=== PATIENT | male | born 1970 | race Caucasian/White ===

== ENCOUNTER 2019-01-05 17:09 | Emergency (ER) | payer BC, SELFPAY ==
[2019-01-05 17:11] VITALS: BP 116/73; PULSE 97; RESP 17; TEMP 36.8; O2SAT 97; BMI 20.2
--- NOTE | 2019-01-05 17:21 | US_ITS ---
STUDY: VENOUS DOPPLER ULTRASOUND - RIGHT LOWER EXTREMITY REASON FOR EXAM: Male, 48 years old. RT POSTERIOR KNEE PAIN-X 1 DAY TECHNIQUE: Ultrasound evaluation of the deep vein system to include arteaga-scale imaging and compression was performed. Arteaga-scale imaging and Doppler sonographic evaluation, including duplex spectral analysis and qualitative color flow sonography, was performed. COMPARISON: None. FINDINGS: Common Femoral Vein: Normal compression, spontaneity and augmentation. Normal color Doppler. Common Femoral Vein/Greater Saphenous Junction: Normal compression, spontaneity and augmentation. Normal color Doppler. Deep Femoral Vein: Normal compression, spontaneity and augmentation. Normal color Doppler. Femoral Proximal: Normal compression, spontaneity and augmentation. Normal color Doppler. Femoral Middle: Normal compression, spontaneity and augmentation. Normal color Doppler. Femoral Distal: Normal compression, spontaneity and augmentation. Normal color Doppler. Popliteal Vein: Normal compression, spontaneity and augmentation. Normal color Doppler. Posterior Tibial Vein: Normal compression, spontaneity and augmentation. Normal color Doppler. Peroneal Vein: Normal compression, spontaneity and augmentation. Normal color Doppler. A 1.33 cm Scott's cyst is present in the posterior aspect and the joint. US/Venous Duplex Imag/Limited/Uni IMPRESSION: 1. No demonstrated deep venous thrombosis of the right lower extremity 2. Small Scott's cyst. Electronically Signed: You Sanchez MD at 18:33 EST , Service support ,
[2019-01-05 19:28] VITALS: BP 108/72; PULSE 60; RESP 16; O2SAT 98
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
--- NOTE | 2019-01-05 19:42 | ED.DEP ---
ED Disposition - Plan for ED Patient: Instructions: Preventing Deep Vein Thrombosis Referrals: JOSE JOE [Other]
[2019-01-05 19:48] VITALS: BP 102/75; PULSE 68; RESP 15; O2SAT 95
== END 2019-01-05 19:48 | disposition home or self-care (01) ==
LOC: ED 18:36
PROVIDERS: Emergency Provider Emergency Medicine
DX: M79.604 Pain in right leg (principal); Z86.718 Personal history of other venous thrombosis and embolism
CPT/HCPCS: 93971; 99282

== ENCOUNTER 2020-06-24 15:03 | Emergency (ER) | payer BC, SELFPAY ==
[2020-06-24 15:04] VITALS: BP 112/73; PULSE 95; RESP 14; TEMP 36.4; O2SAT 98; BMI 20.7
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
== END 2020-06-24 15:39 | disposition home or self-care (01) ==
PROVIDERS: Emergency Provider Emergency Medicine; PCP Family Medicine
DX: S16.1XXA Strain of muscle, fascia and tendon at neck level, initial encounter (principal); V89.2XXA Person injured in unspecified motor-vehicle accident, traffic, initial encounter; Y93.89 Activity, other specified; Y92.9 Unspecified place or not applicable; Y99.9 Unspecified external cause status; F17.200 Nicotine dependence, unspecified, uncomplicated
CPT/HCPCS: 99282

== ENCOUNTER 2022-01-10 16:54 | Emergency (ER) | payer BC, SELFPAY ==
[2022-01-10 16:56] VITALS: BP 122/90; PULSE 116; RESP 18; TEMP 36.1; O2SAT 98; BMI 20.9
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
--- NOTE | 2022-01-10 17:23 | RAD_ITS ---
EXAM: XR LEFT HAND COMPLETE, 3 OR MORE VIEWS CLINICAL INDICATION: Injury/Pain TECHNIQUE: Frontal, lateral and oblique views of the left hand. This report was created using [employer] report generation technology. COMPARISON: None. FINDINGS: BONES/JOINTS: There is a metallic nail seen along the volar aspect of the hand at the level of the metacarpophalangeal joints. This extends from the second through the fourth phalanx. There is no osseous abnormality. No acute fracture. No subluxation. Normal alignment. No sclerotic or destructive changes observed. SOFT TISSUES: Unremarkable. No soft tissue swelling or gas. No radiopaque foreign body. RAD/Hand Min 3 Views IMPRESSION: Nail in the soft tissues of the volar aspect of the hand at the metacarpophalangeal joints. There is no osseous abnormality. Electronically Signed: Cornell Cantor MD at 17:42 EST ,
[2022-01-10] MEDS: Lidocaine 1% (20 ml mdv) 20 ML Vial 5 ML INFILT (17:42)
[2022-01-10] MEDS: Diphth,Pertuss(Acell),Tet Vac 0.5 ML Vial IM (17:42)
[2022-01-10] MEDS: Cephalexin 250 MG Capsule 500 MG PO (18:07)
== END 2022-01-10 18:12 | disposition home or self-care (01) ==
PROVIDERS: Emergency Provider Emergency Medicine; PCP Family Medicine; Visit Provider Emergency Medicine
DX: S61.442A Puncture wound with foreign body of left hand, initial encounter (principal); W29.4XXA Contact with nail gun, initial encounter; F17.210 Nicotine dependence, cigarettes, uncomplicated; Z23 Encounter for immunization
CPT/HCPCS: 73130; 90471; 90715; 99283

== ENCOUNTER 2023-12-26 14:08 | Emergency (ER) | payer BC, SELFPAY ==
[2023-12-26 14:09] VITALS: BP 111/84; PULSE 74; RESP 18; TEMP 36.4; O2SAT 97; BMI 22.1
[2023-12-26 14:57] LABS: Absolute Lymphocyte Count 2.29 X10^3/uL (0.83-4.51); Absolute Neutrophil Count 5.9 X10^3/uL (2.0-7.7); Basophil# 0.08 X10^3/uL; Basophil% 0.9 % (0-1); Eosinophil# 0.25 X10^3/uL; Eosinophils% 2.7 % (0-5); Hematocrit 53.6 % (40-54); Lymphocyte # 2.29 X10^3/ul (0.83-4.51); Lymphocyte % 24.4 % (19-41); Mean Corp Hgb Conc 34.3 g/dL (32-36); Mean Corpuscular Volume 84.5 fL (80-94); Mean Platelet Vol. 8.2 fl (6.2-12.0); Monocyte# 0.86 X10^3/uL; Monocyte% 9.2 % (0-10); NRBC Flagged by Analyzer 0 % (0-5); Neutrophil # 5.87 X10^3/uL (2.7-7.7); Neutrophil % 62.4 % (47-70); Platelet Count 353 K/mm3 (150-450); RBC Distribution Width CV 12.8 % (11.6-14.6); RBC Distribution Width SD 39.6 fl (35.1-43.9); Red Blood Count 6.34 M/mm3 (4.6-6.2); White Blood Count 9.4 K/mm3 (4.4-11.0)
[2023-12-26 15:03] LABS: Hemoglobin 18.4 g/dL (13.0-16.5)
[2023-12-26 15:04] LABS: Bacteria 0 SEEN /hpf (None Seen); Mucous, Urine 0 SEEN /hpf (<or=2+); Red Blood Cells-Urine 0 SEEN /hpf (0-5); Squamous Epithelial Cells - UA 0 SEEN /hpf (0-5)
[2023-12-26 15:07] LABS: Color, Urine Yellow (Yellow); Glucose, Dipstick Normal (Normal); Ketone-Dipstick Negative (Negative); Leukocyte Esterase-Dipstick Negative /ul (Negative); Nitrite-Dipstick Negative (Negative); Occult Blood-Urine Negative /ul (Negative); Protein-Dipstick Negative (Negative); Specific Gravity, Urine 1.015 (1.002-1.030); Urine Bilirubin Dipstick Negative (Negative); Urine Clarity Clear (Clear); Urine Urobilinogen Normal (Normal)
[2023-12-26 15:09] LABS: ALB/GLOB Ratio 1.1 RATIO (0.9-2.4); AST(SGOT) 22 U/L (15-37); Alanine Aminotransfer ALT/SGPT 35 U/L (16-61); Albumin, Serum 3.4 g/dL (3.2-5.0); Alkaline Phosphatase 81 U/L (45-117); Anion Gap 4 (5-15); BUN 15 mg/dL (7-18); BUN/Creat Ratio 14.6 RATIO (10-20); Calcium,Total 8.7 mg/dL (8.5-10.1); Chloride 110 mmol/L (98-107); Creatinine, Serum 1.03 mg/dL (0.70-1.30); EST Glomerular Filtration Rate 80 mL/min (>60); Est Glom Filt Rate - Afr Amer 96 mL/min (>60); Estimated Creatinine Clearance 89.79 ml/min; Globulin 3.1 g/dL (2.2-4.2); Glucose 92 mg/dL (74-106); Potassium 3.8 mmol/L (3.5-5.1); Protein, Total 6.5 g/dL (6.4-8.2); Sodium Level 139 mmol/L (136-145)
[2023-12-26 15:13] LABS: Lactic Acid 1.5 mmol/L (0.4-1.9)
[2023-12-26 15:31] LABS: White Blood Cells 0-5 SEEN /hpf (0-5)
[2023-12-26 16:08] VITALS: BP 103/76; PULSE 80; RESP 18; O2SAT 94
[2023-12-28 14:28] LABS: Pathologist Review Reviewed
== END 2023-12-26 16:31 | disposition home or self-care (01) ==
PROVIDERS: Emergency Provider Emergency Medicine; PCP Family Medicine; Visit Provider Emergency Medicine
DX: R10.9 Unspecified abdominal pain (principal); F17.210 Nicotine dependence, cigarettes, uncomplicated
CPT/HCPCS: 74177; 80053; 81001; 83605; 85025; 99283; Q9967; A4216